=== PATIENT | female | born 1980 | race Hispanic/Latino ===

== ENCOUNTER 2025-02-07 20:28 | Emergency (ER) | payer BC ==
[~2025-02-07] VITALS: Ht 172.7 cm; Wt 104.6 kg
[2025-02-07 21:22] LABS: IMMATURE GRANULOCYTE ABSOLUTE 0.02 K/uL (0-1); NUCLEATED RED BLOOD CELLS 0.0 % (0.0-0.19); PLATELET COUNT (AUTO) 354 K/uL (130-400); RED BLOOD CELL COUNT(AUTO) 4.59 MIL/uL (4.00-5.50); RED CELL DISTRIBUTION WIDTH 12.7 % (11.0-15.5); WHITE BLOOD COUNT (AUTO) 11.3 K/uL (4.8-10.8)
[2025-02-07 21:32] LABS: CREATININE 0.8 mg/dL (0.5-1.0); GLOMERULAR FILTR. RATE CALC 93.0 mL/min (>90); GLUCOSE,RANDOM 89.0 mg/dL (70-105); SODIUM SERUM 147.0 mmol/L (136-145); UREA NITROGEN, BLOOD 13.0 mg/dL (7-18)
[2025-02-07 21:36] LABS: ASPARTATE AMINOTRANSFERASE 44.0 U/L (10-37); TOTAL PROTEIN, SERUM 7.1 g/dL (6.0-8.3)
--- NOTE | 2025-02-07 22:20 | ERN ---
General Chief Complaint: Nausea,Vomiting,Diarrhea Stated Complaint: BLOODY DIARRHEA Time Seen by MD: 20:32 History of Present Illness Initial Comments 44-year-old female with no past medical history, no meds no allergies, who ate some food at a restaurant yesterday and since then has had unremitting bloody diarrhea. She shows me a picture of blood clots in the toilet. She also has had emesis sweating and lightheadedness. She states no symptoms urinating. Allergies: Coded Allergies: No Known Drug Allergies (Unverified Allergy, Unknown, 02/07/25) Past Medical History Past Medical History: No Pertinent History Past Surgical History: Hysterectomy, Constitutional: (-) chills, (-) diaphoresis, (-) fever, (-) malaise, (-) weakness, (-) other documentation EENTM: (-) eye pain, (-) blurred vision, (-) tearing, (-) double vision, (-) ear pain, (-) ear discharge, (-) nose pain, (-) nose congestion, (-) throat pain, (-) Throat swelling, (-) mouth pain, (-) tooth pain, (-) mouth swelling, (-) other documentation Respiratory: (-) cough, (-) orthopnea, (-) short of breath, (-) stridor, (-) wheezing, (-) other documentation Cardiovascular: (-) chest pain, (-) edema, (-) palpitations, (-) syncope, (-) dyspnea on exertion, (-) other documentation Gastrointestinal/Abdominal: (+) nausea, (+) vomiting, (+) diarrhea, (+) abdominal pain, (+) rectal bleeding Genitourinary: (-) vaginal discharge, (-) vaginal bleeding, (-) dysuria, (-) frequency, (-) hematuria, (-) pain, (-) other documentation Musculoskeletal: (-) Neck pain, (-) back pain, (-) Flank Pain, (-) joint pain, (-) joint swelling, (-) muscle pain, (-) muscle stiffness, (-) gout, (-) other documentation Skin: (-) laceration, (-) contusion, (-) abrasion, (-) abscess, (-) rash, (-) change in color, (-) change in hair, (-) change in nails, (-) diaphoresis, (-) dryness, (-) other documentation Neuro: (-) altered mental status, (-) headache, (-) syncope, (-) paralysis, (-) numbness, (-) seizure, (-) pre-existing deficit, (-) tremors, (-) weakness, (-) dizziness, (-) slurred speech, (-) vertigo, (-) other documentation Physical Exam General Appearance: (+) mild distress Orientation: (+) alert, (+) oriented x 3 Head/Face Trauma: No Eye: bilateral eye normal inspection, bilateral eye PERRL, bilateral eye EOMI Ear, Nose, Throat: (+) hearing grossly normal, (+) normal ENT inspection, (+) moist mucous membraine Neck: (+) normal inspection, (+) supple, (+) full range of motion Respiratory: (+) chest non-tender, (+) lungs clear, (+) well ventilated Heart: (+) regular, (+) no gallop Gastrointestinal: (+) soft, (+) non-tender, (+) bowel sound present Results Laboratory and Microbiology Lab and Micro Result Laboratory Tests Test 02/07/25 21:13 02/07/25 22:37 02/07/25 23:00 White Blood Count 11.3 K/uL (4.8-10.8) H Red Blood Count 4.59 MIL/uL (4.00-5.50) Hemoglobin 13.6 g/dL (12.0-16.0) Hematocrit 41.3 % (36-48) Mean Corpuscular Volume 90.0 fL (79-99) Mean Corpuscular Hemoglobin 29.6 pg (27.0-33.0) Mean Corpuscular Hemoglobin Concent 32.9 g/dL (32.0-36.0) Red Cell Distribution Width 12.7 % (11.0-15.5) Platelet Count 354 K/uL (130-400) Mean Platelet Volume 9.6 fL (7.5-10.5) Immature Granulocyte % (Auto) 0.2 % (0-1) Neutrophils (%) (Auto) 71.7 % (40.0-77.0) Lymphocytes (%) (Auto) 17.3 % (21.0-51.0) L Monocytes (%) (Auto) 6.0 % (3.0-13.0) Eosinophils (%) (Auto) 4.1 % (0.0-8.0) Basophils (%) (Auto) 0.7 % (0.0-5.0) Neutrophils # (Auto) 8.1 K/uL (1.8-7.7) H Lymphocytes # (Auto) 2.0 K/uL (1.0-4.8) Monocytes # (Auto) 0.7 K/uL (0.1-1.0) Eosinophils # (Auto) 0.46 K/uL (0.00-0.70) Basophils # (Auto) 0.08 K/uL (0.00-0.20) Absolute Immature Granulocyte (auto 0.02 K/uL (0-1) Nucleated Red Blood Cells 0.0 % (0.0-0.19) Sodium Level 147 mmol/L (136-145) H 146 mmol/L (136-145) H Potassium Level 3.6 mmol/L (3.5-5.1) 3.7 mmol/L (3.5-5.1) Chloride Level 108 mmol/L (101-111) 109 mmol/L (101-111) Carbon Dioxide Level 29 mmol/L (21-32) 29 mmol/L (21-32) Blood Urea Nitrogen 13 mg/dL (7-18) 15 mg/dL (7-18) Creatinine 0.8 mg/dL (0.5-1.0) 0.7 mg/dL (0.5-1.0) Glomerular Filtration Rate Calc 93 mL/min (>90) 109 mL/min (>90) Random Glucose 89 mg/dL (70-105) 94 mg/dL (70-105) Total Calcium 8.9 mg/dL (8.5-10.1) 8.8 mg/dL (8.5-10.1) Total Bilirubin 0.5 mg/dL (0.2-1.0) 0.4 mg/dL (0.2-1.0) Direct Bilirubin 0.1 mg/dL (0.0-0.3) Aspartate Amino Transf (AST/SGOT) 44 U/L (10-37) H 46 U/L (10-37) H Alanine Aminotransferase (ALT/SGPT) 60 U/L (12-78) 58 U/L (12-78) Alkaline Phosphatase 98 U/L (50-136) 89 U/L (50-136) Total Protein 7.1 g/dL (6.0-8.3) 6.6 g/dL (6.0-8.3) Albumin 3.4 g/dL (3.5-5.0) L 3.2 g/dL (3.5-5.0) L Lipase 19 U/L (16-77) Procalcitonin < 0.05 ng/mL (0.05-0.5) L Urine Color YELLOW (YELLOW) Urine Appearance CLEAR (CLEAR) Urine pH 5.5 (5.0-8.0) Urine Specific [place] 1.027 (1.001-1.031) Urine Protein NEGATIVE mg/dL (NEGATIVE) Urine Glucose (UA) NEGATIVE mg/dL (NEGATIVE) Urine Ketones NEGATIVE mg/dL (NEGATIVE) Urine Occult Blood MODERATE (NEGATIVE) H Urine Nitrate NEGATIVE (NEGATIVE) Urine Bilirubin NEGATIVE mg/dL (NEGATIVE) Urine Urobilinogen 0.2 mg/dL (0.2-1.0) Urine Leukocyte Esterase NEGATIVE Sai/uL Urine RBC 2-5 /HPF (0-1) H Urine WBC 2-5 /HPF (0-1) H Urine Squamous Epithelial Cells FEW /HPF (0-2) Urine Bacteria FEW /HPF (None Seen) Urine HCG, Qualitative NEGATIVE (NEGATIVE) MDM MDM: Differential diagnosis: Gastroenteritis, Shigella, urinary tract infection, , arteriovenous malformation, ulcerative colitis Crohn's hemorrhoids Rationale: Tests considered and ordered secondary to shared decision making include: Previous outside records reviewed: Old ER visits. Risk of complication and/or morbidity or mortality of patient management: None Medications-Per medication reconciliation Need for hospitalization: Patient does meet criteria for hospitalization. Need for emergency major/minor surgery: No There are no social concerns with this patient. Prescription drug management Prescriptions will include symptomatic care Patient's prior external medical records from other ER visits were reviewed by me as indicated. Prior testing and results from previous visits were reviewed. Prior tests were taken into account with medical decision making and resource utilization, independent historian/historians were used to obtain complete medical history. I independently interpreted the test that were performed, results were reviewed by me and considered findings on radiology if ordered. Patient's white blood cell count is mildly elevated the rest of her labs are unremarkable. She does have blood in her urine. At this point I can not clearly say that she has blood coming from her stool or from her urine. The UA is negative for esterase activity. To cover both sources I will prescribe the patient some ciprofloxacin. ED Course Orders Procedure Category Date Status Time Cbc With Differential LAB 02/07/25 Complete 21:07 Basic Metabolic Panel LAB 02/07/25 Complete 21: Hepatic Function Panel LAB 02/07/25 Complete 21:07 Lipase LAB 02/07/25 Complete 21:07 Urinalysis Profile LAB 02/07/25 Complete 21: Comprehensive LAB 02/07/25 Complete Metabolic Panel 22:15 ,Urine Test LAB 02/07/25 Complete 22:15 Procalcitonin LAB 02/07/25 Complete 22:15 Ondansetron 4mg Inj PHA 02/07/25 Complete (Zofran 4mg Inj) 22:30 Lactated Ringers PHA 02/07/25 Complete 1000ml (Lactated 22:15 Current Medications Medications (Trade) Dose Ordered Sig/Rich Route PRN Reason Start Time Stop Time Status Last Admin Dose Admin Lactated Ringer's (Lactated Ringers 1000ml) 1,000 ml BOLUS STAT IV 02/07/25 22:15 02/07/25 22:18 DC 02/07/25 22:26 Ondansetron HCl (zoFRAN 4MG INJ) 4 mg ONCE ONCE IVP 02/07/25 22:30 02/07/25 22:31 DC 02/07/25 22:25 Vital Signs Date Time Temp Pulse Resp B/P (MAP) Pulse Ox O2 Delivery O2 Flow Rate FiO2 02/07/25 20:31 98.4 60 19 153/61 97 Room Air 0 DX & DISP Disposition: Discharge Departure Impression: Primary Impression: Hematochezia Condition: Stable Scripts Ciprofloxacin HCl (Ciprofloxacin HCl) 500 Mg Tablet 1 TAB PO BID for 10 Days, #20 TAB 0 Refills Prov: TIESHA ALDRICH MD 02/08/25 Additional Instructions: You have come in because of bloody diarrhea. I have written a prescription for ciprofloxacin which should cover the most common strain of bacteria that causes the symptom. . The antibiotic ciprofloxacin has a small chance to change a part of your heart rhythm which would get worse if you were to also take Zofran or Phenergan. Please avoid Zofran or Phenergan while you are taking the ciprofloxacin. If your nausea and vomiting do not improve to the point that you can not stay hydrated and well nourished please return to the emergency room. Referrals: SELF,REFERRAL (PCP) TIESHA ALDRICH MD Feb 07, 2025 22:20
[2025-02-07] MEDS: LACTATED RINGERS 1000ML IV STA (22:26)
[2025-02-07 22:55] LABS: CREATININE 0.7 mg/dL (0.5-1.0); GLOMERULAR FILTR. RATE CALC 109.0 mL/min (>90); GLUCOSE,RANDOM 94.0 mg/dL (70-105); SODIUM SERUM 146.0 mmol/L (136-145); UREA NITROGEN, BLOOD 15.0 mg/dL (7-18)
[2025-02-07 23:02] LABS: ASPARTATE AMINOTRANSFERASE 46.0 U/L (10-37); TOTAL PROTEIN, SERUM 6.6 g/dL (6.0-8.3)
[2025-02-07 23:26] LABS: APPEARANCE,URINE CLEAR (CLEAR); GLUCOSE, URINE (UA) NEGATIVE (NEGATIVE); LEUKOCYTE ESTERASE ,URINE NEGATIVE Leu/uL (NEGATIVE); NITRATE,URINE NEGATIVE (NEGATIVE); OCCULT BLOOD,URINE MODERATE (NEGATIVE)
[2025-02-07 23:27] LABS: ADD UA MICROSCOPIC YES
[2025-02-07 23:28] LABS: SQUAMOUS EPITHELIAL CELL,UR FEW /HPF (0-2)
[2025-02-08] MEDS ORDERED: CIPR-514 PO (00:12)
[2025-02-08 00:24] VITALS: BP 144/67; PULSE 63; RESP 18; TEMP 98.5; O2SAT 100
== END 2025-02-08 00:25 | disposition home or self-care (01) ==
LOC: EDH 20:28
DX: K92.1 Melena (principal); Z90.710 Acquired absence of both cervix and uterus
CPT/HCPCS: 99284; 96374; 80053; 83690; 85025; 81001; 81025; 36415; 84145; J7120; J2405; 80048; 80076